=== PATIENT | male | born 1935 | race Caucasian/White ===

== ENCOUNTER 2021-04-27 18:17 | Emergency (ER) | payer OTHER, BC ==
[2021-04-27] MEDS ORDERED: DIPHTH,PERTUSS(ACELL),TET 0.5 ML DISP.SYRIN IM ONE ×2 (18:53→19:03)
[2021-04-27 19:04] VITALS: BP 106/59; PULSE 70; TEMP 99; BMI 27.1
== END 2021-04-27 21:14 | disposition home or self-care (01) ==
LOC: FER 18:17
PROC: 3E0234Z Introduction of Serum, Toxoid and Vaccine into Muscle, Percutaneous Approach (ICD-10-PCS; principal; 2021-04-27)
DX: S00.31XA Abrasion of nose, initial encounter (principal); S02.2XXA Fracture of nasal bones, initial encounter for closed fracture; W01.0XXA Fall on same level from slipping, tripping and stumbling without subsequent striking against object, initial encounter
CPT/HCPCS: 70450-TC; 70486-TC; 73502-TC-RT-FY; 73560-TC-RT-FY; 90471; 90715; 99285-25